=== PATIENT | female | born 1990 | race Caucasian/White ===

== ENCOUNTER 2016-11-23 19:23 | Emergency (ER) | payer SELFPAY ==
[~2016-11-23] VITALS: Ht 160 cm; Wt 95.0 kg
[~2016-11-23 19:23] MED LIST: DOXY100T PO; ZOFR4TAB3 SL
[2016-11-23 19:24] VITALS: BP 160/107; PULSE 105; RESP 16; TEMP 99.1; O2SAT 97
--- NOTE | 2016-11-23 20:14 | PD ---
Physical Exam Date Seen by Provider: Nov 23, 2016 Time Seen by Provider: 20:13 Data Data Last Documented VS Vital Signs Date Time Temp Pulse Resp B/P Pulse Ox O2 Delivery O2 Flow Rate FiO2 11/23/16 19:24 99.1 105 16 160/107 97 Room Air [facility] Supervised Visit with LUIS: No Narrative Course 26 YO F with complaint of headache, dizziness, nausea. Started in LEFT jaw ~2 days ago. Denies fever. Vitals reviewed. Awaiting bed placement. Padmini Gan Nov 23, 2016 20:14
[2016-11-23] MEDS ORDERED: CLIN1CAP5 PO (20:37)
[2016-11-23] MEDS ORDERED: IBUP-232 PO (20:37)
[2016-11-23] MEDS ORDERED: TYLETAB34 PO (20:37)
--- NOTE | 2016-11-23 20:37 | PD ---
HPI Chief Complaint: Oral / Dental Pain or Problem Time Seen by Provider: 20:25 Travel History International Travel<30 days: No Contact w/Intl Traveler<30days: No Traveled to known affect area: No History of Present Illness HPI 26-year-old female complains of left-sided jaw pain and swelling. Patient states that the symptoms started yesterday. Patient denies any fever chills. Patient states that she has intermittent dizzy for the pain. Patient denies any headache. Patient denies any neck pain. Patient denies any chest pain or shortness of breath. Patient denies abdominal pain. Patient denies any nausea vomiting diarrhea. On a scale of 1-10 the pain is a 10. 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)) Psychiatric: Yes Reproductive: Yes (POLYCYSTIC OVARY) Respiratory: Yes (ASTHMA) Radiation Therapy: No Sleep Apnea: No Ulcer: Yes PNEUMOCCOCAL Vaccine (Year): 2 ?: Not : 1 Para: 0 Miscarriage: 1 : 0 Ovarian Cysts: Yes Past Surgical History AICD: No Arteriovenous Shunt: No Body Medical Devices: PCOS Insulin Pump: No Joint Replacement: No Neurologic Surgery: No Pacemaker: No Other Surgery: No Social History Alcohol Use: No Tobacco Use: Yes Substance Use: No Allergies-Medications (Allergen,Severity, Reaction): Coded Allergies: Acarides (Mites) (Verified Allergy, Severe, 02/28/16) Cat Dander (Verified Allergy, Severe, 02/28/16) Common Ragweed (Verified Allergy, Severe, 02/28/16) Dust (Verified Allergy, Severe, 02/28/16) Levaquin (Verified Allergy, Severe, Hives, ITCHING,, 02/28/16) Reported Meds & Prescriptions Reported Meds & Active Scripts Active Zofran ODT (Ondansetron HCl) 4 Mg Tab 4 Mg SL Q6H PRN FOR NAUSEA/VOMITING Doxycycline Hyclate 100 mg (Doxycycline Hyclate) 100 Mg Tab 1 Tab PO Q12H 10 Days Review of Systems General / Constitutional: No: Fever Eyes: No: Visual changes HENT: No: Headaches Cardiovascular: No: Chest Pain or Discomfort Respiratory: No: Shortness of Breath Gastrointestinal: No: Abdominal Pain Genitourinary: No: Dysuria Musculoskeletal: No: Pain Skin: No Rash Neurologic: No: Weakness Psychiatric: No: Depression Endocrine: No: Polydipsia Hematologic/Lymphatic: No: Easy Bruising Physical Exam Narrative GENERAL: Well-nourished, well-developed patient. SKIN: Focused skin assessment warm/dry. HEAD: Normocephalic. EYES: No scleral icterus. No injection or drainage. TM: Clear. Left ear canal normal. NECK: Supple, trachea midline. No JVD. No cervical Lymphadenopathy. No meningismus CARDIOVASCULAR: Regular rate and rhythm without murmurs, gallops, or rubs. RESPIRATORY: Breath sounds equal bilaterally. No accessory muscle use. GASTROINTESTINAL: Abdomen soft, non-tender, nondistended. MUSCULOSKELETAL: No cyanosis, or edema. BACK: Nontender without obvious deformity. No CVA tenderness. Patient has mild soft tissue swelling left-sided jaw with moderate tenderness on palpation. No induration. No redness overlying the skin on the left sided jaw.. Data Data Last Documented VS Vital Signs Date Time Temp Pulse Resp B/P Pulse Ox O2 Delivery O2 Flow Rate FiO2 11/23/16 19:24 99.1 105 16 160/107 97 Room Air MDM Medical Decision Making Medical Screen Exam Complete: Yes Emergency Medical Condition: Yes Differential Diagnosis Differential diagnosis including dental pain, dental abscess, parotitis, cellulitis, adenitis. Narrative Course 26-year-old female with left-sided jaw pain and swelling. Diagnosis Primary Impression: Dental abscess Patient Instructions: General Instructions Additional Instructions: Take medications as directed. Follow-up with a dentist. Med/Other Pt SpecificInfo: Prescription(s) given Scripts Acetaminophen-Codeine (Tylenol-Codeine #3)300-30 mg Tab1-2 Tab PO Q6H PRN (PAIN ) #20 TAB Ref 0 Prov:Lon Wylie MD 11/23/16 Ibuprofen 600 Mg [id number] Mg PO Q8H PRN (PAIN) #60 TAB Ref 0 Prov:Lon Wylie MD 11/23/16 Clindamycin 150 Mg Cap2 Tab PO Q6H #80 CAP Prov:Lon Wylie MD 11/23/16 Disposition: 01 DISCHARGE HOME Condition: Stable Lon Wylie MD Nov 23, 2016 20:37
== END 2016-11-23 21:10 | disposition home or self-care (01) ==
LOC: NEPC 19:23
DX: K04.7 Periapical abscess without sinus (principal); Z72.0 Tobacco use
CPT/HCPCS: 99284

== ENCOUNTER 2017-01-04 10:31 | Emergency (ER) | payer SELFPAY ==
[~2017-01-04] VITALS: Ht 162.6 cm; Wt 100.0 kg
[~2017-01-04 10:31] MED LIST changes: +CLIN1CAP5 PO; -DOXY100T PO; +IBUP-232 PO; +TYLETAB34 PO; -ZOFR4TAB3 SL
[2017-01-04 10:33] VITALS: BP 145/94; PULSE 120; RESP 24; TEMP 98.3; O2SAT 99
[2017-01-04 10:44] VITALS: BP 149/97; PULSE 92; RESP 16; O2SAT 99
[2017-01-04] MEDS ORDERED: PENI500T PO (12:13)
--- NOTE | 2017-01-04 12:13 | PD ---
HPI Chief Complaint: Facial Pain or Swelling Time Seen by Provider: 10:46 Travel History International Travel<30 days: No Contact w/Intl Traveler<30days: No Traveled to known affect area: No History of Present Illness HPI Patient is a 26-year-old female presents emergency department for evaluation of right-sided neck swelling and difficulty swallowing. Patient states symptoms for the past day and a half. Denies any fever denies any cough or congestion. States this is never happened this severe before but states feels similar to a dental abscess she had prior. States symptoms are aggravating in severity and gradually worsening. 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)) Psychiatric: Yes Reproductive: Yes (POLYCYSTIC OVARY) Respiratory: Yes (ASTHMA) Radiation Therapy: No Sleep Apnea: No Ulcer: Yes PNEUMOCCOCAL Vaccine (Year): 2 ?: Not LMP: 12/29/16 : 1 Para: 0 Miscarriage: 1 : 0 Ovarian Cysts: Yes Past Surgical History Surgical History: No Previous Surgery AICD: No Arteriovenous Shunt: No Body Medical Devices: PCOS Insulin Pump: No Joint Replacement: No Neurologic Surgery: No Pacemaker: No Other Surgery: No Social History Alcohol Use: No Tobacco Use: Yes (1pp/3 days) Substance Use: No Allergies-Medications (Allergen,Severity, Reaction): Coded Allergies: Acarides (Mites) (Verified Allergy, Severe, 01/04/17) Cat Dander (Verified Allergy, Severe, 01/04/17) Common Ragweed (Verified Allergy, Severe, 01/04/17) Dust (Verified Allergy, Severe, 01/04/17) Levaquin (Verified Allergy, Severe, Hives, ITCHING,, 01/04/17) Reported Meds & Prescriptions Reported Meds & Active Scripts Active Magic Mouthwash Adult Liq (Multi-Ingredient Mouthwash/Gargle) 120 Ml Susp 5 Ml SWISH-SWAL ACHS Each 5mL contains: Nystatin 200,000units, Diphenhydramine 4.25mg, Viscous Lidocaine 10mg, Espinoza syrup 0.8 mL Penicillin V Potassium 500 Mg Tab 500 Mg PO Q6H 7 Days Review of Systems Except as stated in HPI: all other systems reviewed are Neg Physical Exam Narrative GENERAL: Well-nourished, well-developed patient. SKIN: Focused skin assessment warm/dry. HEAD: Normocephalic. EYES: No scleral icterus. No injection or drainage. ENT: TMs clear bilaterally, oropharynx is erythematous, no edema, tonsils are minimally enlarged. No purulent discharge. NECK: Supple, trachea midline. No JVD. Patient has no soft tissue swelling also given a swelling of the right or left neck. There perhaps is a very small tender lymph node on the right side. CARDIOVASCULAR: Regular rate and rhythm without murmurs, gallops, or rubs. RESPIRATORY: Breath sounds equal bilaterally. No accessory muscle use. GASTROINTESTINAL: Abdomen soft, non-tender, nondistended. MUSCULOSKELETAL: No cyanosis, or edema. BACK: Nontender without obvious deformity. No CVA tenderness. Data Data Last Documented VS Vital Signs Date Time Temp Pulse Resp B/P Pulse Ox O2 Delivery O2 Flow Rate FiO2 01/04/17 10:44 92 16 149/97 99 Room Air 01/04/17 10:33 98.3 Orders Group A Rapid Strep Screen (01/04/17 10:46) Lmpb-Ezuy-Zbjo Liq (Magic Mouthwash Adul (01/04/17 13:00) Strep Culture (Group A) (01/04/17 10:45) MDM Medical Decision Making Medical Screen Exam Complete: Yes Emergency Medical Condition: Yes Differential Diagnosis Dental pain, dental abscess, jaw pain, strep throat. Narrative Course Patient roomed emerged primary, appears well in obvious distress. Strep test is negative, will be placed on penicillin for possible dental abscess. I discussed with her need follow-up the primary care physician as well as a dentist. Discussed return to ED criteria. She stable for discharge this time. Diagnosis Primary Impression: Jaw pain Additional Impression: Lymphadenopathy Departure Forms: Tests/Procedures, Work Release Enter return to work date: Jan 06, 2017 Med/Other Pt SpecificInfo: Prescription(s) given Scripts Nsatwqom-Eulifumzehpuoeu-Ufelilsrx Liq (Magic Mouthwash Adult Liq)120 Ml Susp5 Ml SWISH-SWAL ACHS #120 ML Ref 0 Each 5mL contains: Nystatin 200,000units, Diphenhydramine 4.25mg, Viscous Lidocaine 10mg, Espinoza syrup 0.8 mL Prov:Magen Hassan MD 01/04/17 Penicillin V Potassium 500 Mg [id number] Mg PO Q6H 7 Days Ref 0 Prov:Magen Hassan MD 01/04/17 Disposition: 01 DISCHARGE HOME Condition: Stable Magen Hassan MD Jan 04, 2017 12:13
[2017-01-04] MEDS ORDERED: MAGICADU2 SWISH-SWAL (12:15)
[2017-01-04] MEDS ORDERED: NYSTAT/DIPHENHY/LIDO MOUTHWASH (Adult) 120ML SWISH-SWAL SCH (13:00)
== END 2017-01-04 13:08 | disposition home or self-care (01) ==
LOC: NEPE 10:31
DX: R68.84 Jaw pain (principal); R59.1 Generalized enlarged lymph nodes; J45.909 Unspecified asthma, uncomplicated; M32.9 Systemic lupus erythematosus, unspecified; F90.9 Attention-deficit hyperactivity disorder, unspecified type; F32.9 Major depressive disorder, single episode, unspecified; F17.200 Nicotine dependence, unspecified, uncomplicated; Z79.899 Other long term (current) drug therapy
CPT/HCPCS: 87081; 87880; 99284

== ENCOUNTER 2017-04-28 15:14 | Emergency (ER) | payer SELFPAY ==
[~2017-04-28] VITALS: Ht 160 cm; Wt 105.0 kg
[~2017-04-28 15:14] MED LIST changes: -CLIN1CAP5 PO; -IBUP-232 PO; +MAGICADU2 SWISH-SWAL; +PENI500T PO; -TYLETAB34 PO
[2017-04-28 15:16] VITALS: BP 133/87; PULSE 111; RESP 18; TEMP 99.4; O2SAT 97
--- NOTE | 2017-04-28 16:21 | RADRPT ---
EXAM DATE/TIME: 04/28/2017 15:55 [facility] COMPARISON: No previous studies available for comparison. INDICATIONS : Left heel pain for the past month. No prior trauma. MEDICAL HISTORY : None. SURGICAL HISTORY : None. ENCOUNTER: Initial ACUITY: 1 month PAIN SCORE: 5/10 LOCATION: Left heel. FINDINGS: 3 views of the left calcaneus demonstrate no fracture or dislocation. Mineralization is normal. There is a small chronic enthesophyte at the plantar aspect of the calcaneus. The plantar aspect soft tiss ues demonstrate no abnormality. No radiopaque foreign body is identified. CONCLUSION: No abnormality is identified to explain the clinical symptoms. Gurjit Martinez MD on April 28, 2017 at 16:18 Board Certified Radiologist. This report was verified electronically.
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
[2017-04-28] MEDS ORDERED: ACETAMINOPHEN 325 MG TAB PO ONE (18:15)
[2017-04-28] MEDS ORDERED: ONDANSETRON ODT 4 MG TAB PO ONE (18:15)
[2017-04-28 18:55] VITALS: BP 114/59
== END 2017-04-28 18:56 | disposition home or self-care (01) ==
LOC: NEPD 15:14
DX: S09.90XA Unspecified injury of head, initial encounter (principal); M79.672 Pain in left foot; R11.0 Nausea; F90.9 Attention-deficit hyperactivity disorder, unspecified type; J45.909 Unspecified asthma, uncomplicated; M32.9 Systemic lupus erythematosus, unspecified; F17.200 Nicotine dependence, unspecified, uncomplicated; Y04.2XXA Assault by strike against or bumped into by another person, initial encounter; Z79.899 Other long term (current) drug therapy
CPT/HCPCS: 70450; 73650

== ENCOUNTER 2017-06-26 11:55 | Emergency (ER) | payer SELFPAY ==
[~2017-06-26] VITALS: Ht 160 cm; Wt 95.5 kg
[2017-06-26 11:56] VITALS: BP 159/102; PULSE 107; RESP 20; TEMP 98.8; O2SAT 98
--- NOTE | 2017-06-26 12:25 | PD ---
HPI Chief Complaint: Headache Time Seen by Provider: 12:24 Travel History International Travel<30 days: No Contact w/Intl Traveler<30days: No Traveled to known affect area: No History of Present Illness HPI 27-year-old female came to the emergency room with history of headache, epigastric pain, nausea for past 2-3 days. Patient says that she has history of bulimia but stopped 2 months ago. But for past couple days every time she eats she started getting epigastric pain and headache. She seems uncomfortable. Vital signs showed slight tachycardia. Patient says that she was at work when she started getting this pain again and decided to come to the emergency room. She's never had any bowel surgeries in the past. Pain is isolated in the epigastric area. PFSH Past Medical History Narrative Medical List of her past medical, surgical, social and family history is reviewed from the nursing note. ADD: Yes ADHD: Yes Asthma: Yes Autoimmune Disease: Yes (LUPUS) Blood Disorders: No Anxiety: Yes Depression: Yes ("DYSTHYMIA") Cancer: No Cardiovascular Problems: No Chemotherapy: No COPD: No Diminished Hearing: No Endocrine: No Gastrointestinal Disorders: Yes Genitourinary: Yes Immune Disorder: Yes ("LUPUS") Implanted Vascular Access Dvce: No Musculoskeletal: No Neurologic: Yes (SHORT TERM MEMORY LOSS (SINCE CHILDHOOD-NO KNOWN CAUSE)) Psychiatric: Yes Reproductive: Yes (POLYCYSTIC OVARY) Respiratory: Yes (ASTHMA) Radiation Therapy: No Sleep Apnea: No Ulcer: Yes PNEUMOCCOCAL Vaccine (Year): 2 ?: Not LMP: 05/28/17 : 1 Para: 0 Miscarriage: 1 : 0 Ovarian Cysts: Yes Past Surgical History AICD: No Arteriovenous Shunt: No Body Medical Devices: PCOS Insulin Pump: No Joint Replacement: No Neurologic Surgery: No Pacemaker: No Other Surgery: No Social History Alcohol Use: No Tobacco Use: Yes (1pp/3 days) Substance Use: No Allergies-Medications (Allergen,Severity, Reaction): Coded Allergies: cat dander (Unverified Allergy, Severe, 06/26/17) house dust (Unverified Allergy, Severe, 06/26/17) levofloxacin (Unverified Allergy, Severe, Hives, ITCHING,, 06/26/17) pesticide (Unverified Allergy, Severe, 06/26/17) ragweed pollen (Unverified Allergy, Severe, 06/26/17) Comments List of her allergies reviewed from the nursing note. Reported Meds & Prescriptions Reported Meds & Active Scripts Active Protonix (Pantoprazole Sodium) 20 Mg Tab 20 Mg PO DAILY Zofran Odt (Ondansetron Odt) 4 Mg Tab 4 Mg SL Q6HR PRN Narrative Medication List of her home medications reviewed from the nursing note. Review of Systems Except as stated in HPI: all other systems reviewed are Neg Gastrointestinal: Positive: Nausea, Abdominal Pain Neurologic: Positive: Headache Physical Exam Narrative GENERAL: Awake, alert, obese, moderate distress, anxious SKIN: Focused skin assessment warm/dry. HEAD: Atraumatic. Normocephalic. EYES: Pupils equal and round. No scleral icterus. No injection or drainage. ENT: No nasal bleeding or discharge. Mucous membranes pink and moist. NECK: Trachea midline. No JVD. CARDIOVASCULAR: Regular rate and rhythm. No murmur appreciated. RESPIRATORY: No accessory muscle use. Clear to auscultation. Breath sounds equal bilaterally. GASTROINTESTINAL: Abdomen soft, non-tender, nondistended. Hepatic and splenic margins not palpable. MUSCULOSKELETAL: No obvious deformities. No clubbing. No cyanosis. No edema. NEUROLOGICAL: Awake and alert. No obvious cranial nerve deficits. Motor grossly within normal limits. Normal speech. PSYCHIATRIC: Appropriate mood and affect; insight and judgment normal. Data Data Last Documented VS Vital Signs Date Time Temp Pulse Resp B/P (MAP) Pulse Ox O2 Delivery O2 Flow Rate FiO2 06/26/17 14:45 06/26/17 11:56 98.8 107 20 98 Room Air Orders Orders Complete Blood Count With Diff (06/26/17 12:28) Comprehensive Metabolic Panel (06/26/17 12:28) Lipase (06/26/17 12:28) Urinalysis - C+S If Indicated (06/26/17 12:28) Iv Access Insert/Monitor (06/26/17 12:28) Ecg Monitoring (06/26/17 12:28) Oximetry (06/26/17 12:28) Sodium Chlor 0.9% 1000 Ml Inj (Ns 1000 M (06/26/17 12:28) Sodium Chloride 0.9% Flush (Ns Flush) (06/26/17 12:30) Prochlorperazine Inj (Compazine Inj) (06/26/17 12:30) Pantoprazole Inj (Protonix Inj) (06/26/17 12:45) Ed Poc Ultrasound (06/26/17 ) Ed Discharge Order (06/26/17 14:27) Labs Laboratory Tests Test 06/26/17 12:40 06/26/17 12:50 Urine Color LIGHT-YELLOW Urine Turbidity CLEAR Urine pH 6.5 Urine Specific [place] 1.004 Urine Protein NEG mg/dL Urine Glucose (UA) NEG mg/dL Urine Ketones NEG mg/dL Urine Occult Blood NEG Urine Nitrite NEG Urine Bilirubin NEG Urine Urobilinogen LESS THAN 2.0 MG/DL Urine Leukocyte Esterase NEG Urine RBC 1 /hpf Urine WBC LESS THAN 1 /hpf Urine Squamous Epithelial Cells 1 /hpf Urine Bacteria RARE /hpf Microscopic Urinalysis Comment CULT NOT INDICATED White Blood Count 9.7 TH/MM3 Red Blood Count 4.93 MIL/MM3 Hemoglobin 14.3 GM/DL Hematocrit 42.9 % Mean Corpuscular Volume 87.1 FL Mean Corpuscular Hemoglobin 29.1 PG Mean Corpuscular Hemoglobin Concent 33.4 % Red Cell Distribution Width 13.5 % Platelet Count 303 TH/MM3 Mean Platelet Volume 8.3 FL Neutrophils (%) (Auto) 67.7 % Lymphocytes (%) (Auto) 23.9 % Monocytes (%) (Auto) 5.8 % Eosinophils (%) (Auto) 1.6 % Basophils (%) (Auto) 1.0 % Neutrophils # (Auto) 6.6 TH/MM3 Lymphocytes # (Auto) 2.3 TH/MM3 Monocytes # (Auto) 0.6 TH/MM3 Eosinophils # (Auto) 0.2 TH/MM3 Basophils # (Auto) 0.1 TH/MM3 CBC Comment DIFF FINAL Differential Comment Blood Urea Nitrogen 17 MG/DL Creatinine 0.66 MG/DL Random Glucose 87 MG/DL Total Protein 8.2 GM/DL Albumin 4.0 GM/DL Calcium Level 8.9 MG/DL Alkaline Phosphatase 80 U/L Aspartate Amino Transf (AST/SGOT) 19 U/L Alanine Aminotransferase (ALT/SGPT) 22 U/L Total Bilirubin 0.3 MG/DL Sodium Level 139 MEQ/L Potassium Level 4.2 MEQ/L Chloride Level 106 MEQ/L Carbon Dioxide Level 24.7 MEQ/L Anion Gap 8 MEQ/L Estimat Glomerular Filtration Rate 106 ML/MIN Lipase 155 U/L MDM Medical Decision Making Medical Screen Exam Complete: Yes Emergency Medical Condition: Yes Medical Record Reviewed: Yes Differential Diagnosis Acute gastritis, acute pancreatitis, biliary colic, acute cholecystitis Narrative Course 2:24 PM bedside ultrasound done by me did not show any gallbladder stone. Please refer to my procedure note. Blood test results finally came back and they're within normal limit. He discharged home. She was given IV Protonix and nausea medicine. She was also given Compazine for her headache. Procedures EKG Prior to Arrival: No Diagnosis Primary Impression: Headache Qualified Codes: R51 - Headache Additional Impression: Acute gastritis Qualified Codes: K29.00 - Acute gastritis without bleeding Referrals: Primary Care Physician Additional Instructions: Please return to the ER if condition worsens or any other new concerns. Take the medication as per the prescription direction. Follow-up with your primary care. Med/Other Pt SpecificInfo: Prescription(s) given Scripts Pantoprazole (Protonix) 20 Mg Tab 20 MG PO DAILY for Reflux, #30 TAB 0 Refills Prov: Geoffrey Liz MD 06/26/17 Ondansetron Odt (Zofran Odt) 4 Mg Tab 4 MG SL Q6HR Y for Nausea/Vomiting, #10 TAB 0 Refills Prov: Geoffrey Liz MD 06/26/17 Disposition: 01 DISCHARGE HOME Condition: Stable Geoffrey Liz MD Jun 26, 2017 12:25
[2017-06-26] MEDS ORDERED: SODIUM CHLOR 0.9% 1000 ML INJ 1,000 ML IV SCH (12:28)
[2017-06-26] MEDS ORDERED: PROCHLORPERAZINE INJ 10 MG/2 ML VIAL IV PUSH ONE (12:30)
[2017-06-26] MEDS ORDERED: SODIUM CHLORIDE 0.9% FLUSH 10 ML FLUSH IV FLUSH PRN (12:30)
[2017-06-26] MEDS ORDERED: PANTOPRAZOLE SODIUM 40 MG VIAL IV PUSH ONE (12:45)
[2017-06-26 13:17] LABS: AUTOMATED NEUTROPHIL # 6.6 TH/MM3 (1.8-7.7); BASOPHIL # 0.1 TH/MM3 (0-0.2); EOSINOPHIL # 0.2 TH/MM3 (0-0.4); EOSINOPHIL % 1.6 % (0.0-4.0); HEMATOCRIT 42.9 % (35.0-46.0); HEMOGLOBIN 14.3 GM/DL (11.6-15.3); LYMPH % 23.9 % (9.0-44.0); LYMPHOCYTE # 2.3 TH/MM3 (1.0-4.8); MEAN CELL VOLUME 87.1 FL (80.0-100.0); MEAN CORPUSCULAR HEMOGLOBIN 29.1 PG (27.0-34.0); MEAN CORPUSCULAR HGB CONC 33.4 % (32.0-36.0); MEAN PLATELET VOLUME 8.3 FL (7.0-11.0); MONO % 5.8 % (0.0-8.0); MONOCYTE # 0.6 TH/MM3 (0-0.9); NEUT % 67.7 % (16.0-70.0); PLATELET COUNT 303 TH/MM3 (150-450); RED BLOOD COUNT 4.93 MIL/MM3 (4.00-5.30); RED CELL DISTRIBUTION WIDTH 13.5 % (11.6-17.2); WHITE BLOOD COUNT 9.7 TH/MM3 (4.0-11.0)
[2017-06-26 13:29] LABS: BACTERIA, URINE RARE /hpf; BILIRUBIN, URINE NEG (NEG); BLOOD, URINE NEG (NEG); GLUCOSE,URINE NEG (NEG); KETONE, URINE NEG (NEG); NITRITE,URINE NEG (NEG); PH, URINE 6.5 (5.0-8.5); SQUAMOUS EPITHELIAL CELL URINE 1 /hpf (0-5); URINE COLOR LIGHT-YELLOW (YELLW/STRAW); URINE LEUKOCYTE ESTERASE NEG (NEG)
[2017-06-26 14:13] LABS: ALT (GPT) 22 U/L (10-53); AST (GOT) 19 U/L (15-37); BICARBONATE 24.7 MEQ/L (21.0-32.0); BLOOD UREA NITROGEN 17 MG/DL (7-18); CALCIUM 8.9 MG/DL (8.5-10.1); CHLORIDE 106 MEQ/L (98-107); CREATININE 0.66 MG/DL (0.50-1.00); GLOMERULAR FILTRATION RATE 106 ML/MIN (>89); GLUCOSE,RANDOM 87 MG/DL (74-106); LIPASE 155 U/L (73-393); SODIUM (NA) 139 MEQ/L (136-145)
[2017-06-26 14:15] LABS: ALKALINE PHOSPHATASE 80 U/L (45-117); TOTAL BILIRUBIN ADULT 0.3 MG/DL (0.2-1.0); TOTAL PROTEIN 8.2 GM/DL (6.4-8.2)
[2017-06-26] MEDS ORDERED: ZOFR4TAB3 SL (14:27)
[2017-06-26] MEDS ORDERED: PANT20 PO (14:27)
== END 2017-06-26 14:46 | disposition home or self-care (01) ==
LOC: NEPD 11:55
DX: R51 Headache (principal); K29.00 Acute gastritis without bleeding; F17.200 Nicotine dependence, unspecified, uncomplicated
CPT/HCPCS: 80053; 81001; 83690; 85025; 96374; 96375; 99284; C9113; J0780; J7030

== ENCOUNTER 2017-07-23 00:16 | Emergency (ER) | payer SELFPAY ==
[~2017-07-23] VITALS: Ht 162.6 cm; Wt 115.0 kg
[~2017-07-23 00:16] MED LIST changes: -MAGICADU2 SWISH-SWAL; +PANT20 PO; -PENI500T PO; +ZOFR4TAB3 SL
[2017-07-23 00:18] VITALS: BP 122/84; PULSE 115; RESP 20; TEMP 101.5; O2SAT 97
[2017-07-23] MEDS ORDERED: IBUPROFEN 800 MG TAB PO ONE (01:30)
[2017-07-23] MEDS ORDERED: ACETAMINOPHEN 500 MG CPLT PO ONE (01:30)
--- NOTE | 2017-07-23 01:36 | PD ---
HPI Chief Complaint: Cold / Flu Symptoms Time Seen by Provider: 01:35 Travel History International Travel<30 days: No Contact w/Intl Traveler<30days: No Traveled to known affect area: No History of Present Illness HPI 27 year-old female presents to the emergency department by private transportation for complaint of fever chills cough congestion sore throat headache myalgias arthralgias nausea vomiting abdominal pain no dysuria frequency urgency or diarrhea. Symptoms are present since yesterday. Unknown last visit. If she has polycystic ovary syndrome. Patient denies other concerns or complaints. Patient has taken one-time dose of DayQuil at 2 PM without symptom relief. 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)) Psychiatric: Yes Reproductive: Yes (POLYCYSTIC OVARY) Respiratory: Yes (ASTHMA) Radiation Therapy: No Sleep Apnea: No Ulcer: Yes Tetanus Vaccination: Unknown Influenza Vaccination: No PNEUMOCCOCAL Vaccine (Year): 2 ?: Not LMP: irregular periods : 1 Para: 0 Miscarriage: 1 : 0 Ovarian Cysts: Yes Past Surgical History Surgical History: Unable to Obtain AICD: No Arteriovenous Shunt: No Body Medical Devices: PCOS Insulin Pump: No Joint Replacement: No Neurologic Surgery: No Pacemaker: No Other Surgery: No Social History Alcohol Use: No Tobacco Use: Yes (1pp/3 days) Substance Use: No Allergies-Medications (Allergen,Severity, Reaction): Coded Allergies: cat dander (Unverified Allergy, Severe, 07/23/17) house dust (Unverified Allergy, Severe, 07/23/17) levofloxacin (Unverified Allergy, Severe, Hives, ITCHING,, 07/23/17) pesticide (Unverified Allergy, Severe, 07/23/17) ragweed pollen (Unverified Allergy, Severe, 07/23/17) Reported Meds & Prescriptions Reported Meds & Active Scripts Active Protonix (Pantoprazole Sodium) 20 Mg Tab 20 Mg PO DAILY Zofran Odt (Ondansetron Odt) 4 Mg Tab 4 Mg SL Q6HR PRN Review of Systems Except as stated in HPI: all other systems reviewed are Neg Physical Exam Narrative GENERAL: Well-developed well-nourished morbidly obese female in no acute distress no respiratory distress; Triaged temperature 101.5 F SKIN: Warm and dry. HEAD: Normocephalic. EYES: No scleral icterus. No injection or drainage. NECK: Supple, trachea midline. No JVD or lymphadenopathy. CARDIOVASCULAR: Regular rate and rhythm without murmurs, gallops, or rubs. RESPIRATORY: Breath sounds equal bilaterally. No accessory muscle use. GASTROINTESTINAL: Abdomen soft, non-tender, nondistended. MUSCULOSKELETAL: No cyanosis, or edema. BACK: Nontender without obvious deformity. No CVA tenderness. Data Data Last Documented VS Vital Signs Date Time Temp Pulse Resp B/P (MAP) Pulse Ox O2 Delivery O2 Flow Rate FiO2 07/23/17 00:18 101.5 115 20 122/84 (97) 97 Orders Orders Influenzae A/B Antigen (07/23/17 01:08) Ibuprofen (Motrin) (07/23/17 01:30) Acetaminophen (Tylenol) (07/23/17 01:30) Ed Urine Pregnancytest Poc (07/23/17 01:30) Oseltamivir (Tamiflu) (07/23/17 01:45) MDM Medical Decision Making Medical Screen Exam Complete: Yes Emergency Medical Condition: Yes Medical Record Reviewed: Yes Interpretation(s) Influenza A/B antigen: Positive A Differential Diagnosis Influenza, viral syndrome, sinusitis, pharyngitis, pneumonia Narrative Course 27-year-old female with multiple respiratory symptoms consistent with probable influenza virus presents with 24 hours of symptoms last dose of medication NyQuil at 2 PM providing of symptomatic relief. Patient will have flu swab specimen collected and be given weight-based ibuprofen and acetaminophen To test was positive for patient stable for outpatient management first dose of Tamiflu administered in the emergency department Diagnosis Primary Impression: Influenza Referrals: Primary Care Physician call for appointment Patient Instructions: General Instructions Med/Other Pt SpecificInfo: Prescription(s) given Scripts Oseltamivir (Tamiflu) 75 Mg Cap 75 MG PO BID for Mgmt Viral Infection for 5 Days, #10 CAP 0 Refills Prov: Salter,Adri H. MD 07/23/17 Disposition: 01 DISCHARGE HOME Condition: Stable Adri Jasso MD Jul 23, 2017 01:36
[2017-07-23] MEDS ORDERED: OSELTAMIVIR PHOSPHATE 75 MG CAP PO ONE (01:45)
[2017-07-23] MEDS ORDERED: OSEL75 PO (01:45)
== END 2017-07-23 02:06 | disposition home or self-care (01) ==
LOC: NEPC 00:16
DX: J11.1 Influenza due to unidentified influenza virus with other respiratory manifestations (principal); R11.2 Nausea with vomiting, unspecified; R51 Headache; F17.200 Nicotine dependence, unspecified, uncomplicated; M32.9 Systemic lupus erythematosus, unspecified; F90.9 Attention-deficit hyperactivity disorder, unspecified type; J45.909 Unspecified asthma, uncomplicated; F41.9 Anxiety disorder, unspecified; F32.9 Major depressive disorder, single episode, unspecified
CPT/HCPCS: 84703; 87804; 99283

== ENCOUNTER 2017-07-23 19:32 | Emergency (ER) | payer SELFPAY ==
[~2017-07-23] VITALS: Ht 162.6 cm; Wt 114.0 kg
[~2017-07-23 19:32] MED LIST changes: +OSEL75 PO
[2017-07-23 19:33] VITALS: BP 135/92; PULSE 110; RESP 16; TEMP 98.6; O2SAT 96
--- NOTE | 2017-07-23 21:58 | PD ---
HPI Chief Complaint: Respiratory Symptoms Time Seen by Provider: 21:47 Travel History International Travel<30 days: No Contact w/Intl Traveler<30days: No Traveled to known affect area: No History of Present Illness HPI 27-year-old female presents to the emergency department complaining of cough, congestion, body aches that worsened over the evening. States that she was here yesterday and was diagnosed with the flu. States she has been taking her Tamiflu over the last day. In addition, she has felt "dizzy" and more short of breath. Patient denies nausea or vomiting but admits to decreased appetite. Denies abdominal pain. Says her symptoms have been present for approximately 2 days. PFSH Past Medical History ADD: Yes ADHD: Yes Asthma: Yes Autoimmune Disease: Yes (LUPUS) Blood Disorders: No Anxiety: Yes Depression: Yes ("DYSTHYMIA") Cancer: No Cardiovascular Problems: No Chemotherapy: No COPD: No Diminished Hearing: No Endocrine: No Gastrointestinal Disorders: Yes Genitourinary: Yes Immune Disorder: Yes ("LUPUS") Implanted Vascular Access Dvce: No Musculoskeletal: No Neurologic: Yes (SHORT TERM MEMORY LOSS (SINCE CHILDHOOD-NO KNOWN CAUSE)) Psychiatric: Yes Reproductive: Yes (POLYCYSTIC OVARY) Respiratory: Yes (ASTHMA) Radiation Therapy: No Sleep Apnea: No Ulcer: Yes PNEUMOCCOCAL Vaccine (Year): 2 ?: Unknown : 1 Para: 0 Miscarriage: 1 : 0 Ovarian Cysts: Yes Past Surgical History Surgical History: No Previous Surgery AICD: No Arteriovenous Shunt: No Body Medical Devices: PCOS Insulin Pump: No Joint Replacement: No Neurologic Surgery: No Pacemaker: No Other Surgery: No Social History Alcohol Use: No Tobacco Use: Yes (1pp/3 days) Substance Use: No Allergies-Medications (Allergen,Severity, Reaction): Coded Allergies: cat dander (Unverified Allergy, Severe, 07/23/17) house dust (Unverified Allergy, Severe, 07/23/17) levofloxacin (Unverified Allergy, Severe, Hives, ITCHING,, 07/23/17) pesticide (Unverified Allergy, Severe, 07/23/17) ragweed pollen (Unverified Allergy, Severe, 07/23/17) Reported Meds & Prescriptions Reported Meds & Active Scripts Active Tamiflu (Oseltamivir Phosphate) 75 Mg Cap 75 Mg PO BID 5 Days Protonix (Pantoprazole Sodium) 20 Mg Tab 20 Mg PO DAILY Zofran Odt (Ondansetron Odt) 4 Mg Tab 4 Mg SL Q6HR PRN Review of Systems Except as stated in HPI: all other systems reviewed are Neg Physical Exam Narrative GENERAL: Well-nourished, well-developed patient. SKIN: Focused skin assessment warm/dry. Skin is warm HEAD: Normocephalic. EYES: No scleral icterus. No injection or drainage. NECK: Supple, trachea midline. No JVD or lymphadenopathy. CARDIOVASCULAR: Regular rate and rhythm without murmurs, gallops, or rubs. RESPIRATORY: Breath sounds equal bilaterally. No accessory muscle use. GASTROINTESTINAL: Abdomen soft, non-tender, nondistended. MUSCULOSKELETAL: No cyanosis, or edema. BACK: Nontender without obvious deformity. No CVA tenderness. Data Data Last Documented VS Vital Signs Date Time Temp Pulse Resp B/P (MAP) Pulse Ox O2 Delivery O2 Flow Rate FiO2 07/23/17 23:16 07/23/17 21:50 18 Room Air 07/23/17 19:33 98.6 110 96 Orders Orders Chest, Single Ap (07/23/17 ) Ketorolac Inj (Toradol Inj) (07/23/17 22:00) Sodium Chlor 0.9% 1000 Ml Inj (Ns 1000 M (07/23/17 22:00) Oseltamivir (Tamiflu) (07/23/17 22:00) Ed Discharge Order (07/23/17 23:06) MDM Medical Decision Making Medical Screen Exam Complete: Yes Emergency Medical Condition: Yes Differential Diagnosis Influenza A, viral syndrome, upper respiratory infection Narrative Course 27-year-old female presents to the emergency department complaining of cough, congestion, body aches that worsened over the evening. States that she was here yesterday and was diagnosed with the flu. States she has been taking her Tamiflu over the last day. In addition, she has felt "dizzy" and more short of breath. Patient denies nausea or vomiting but admits to decreased appetite. Denies abdominal pain. Says her symptoms have been present for approximately 2 days. Vital signs- tachycardia Influenza positive yesterday. 1 L NS IV fluids, Toradol 60 mg administered in the emergency department. Chest x-ray without acute process. Encourage fluid intake and nutritious diet. Tylenol or Motrin per package instructions. Advised to follow-up with her primary care physician. Reassured patient that this is the normal process of the influenza. Advised to continue Tamiflu as prescribed previously. Advised the Tamiflu is meant to decrease the duration of the flu not necessarily the symptoms. Diagnosis Primary Impression: Influenza A Referrals: Primary Care Physician Additional Instructions: Continue Tamiflu as discussed. You received a dose of Tamiflu while in the emergency department today. Take tylenol or motrin for your body aches. Encourage adequate fluid intake. Disposition: 01 DISCHARGE HOME Condition: Stable Altagracia Martinez Jul 23, 2017 21:58
[2017-07-23] MEDS ORDERED: OSELTAMIVIR PHOSPHATE 75 MG CAP PO ONE (22:00)
[2017-07-23] MEDS ORDERED: KETOROLAC TROMETHAMINE 60 MG/2 ML (IM) VIAL IM ONE (22:00)
[2017-07-23] MEDS ORDERED: SODIUM CHLOR 0.9% 1000 ML INJ 1,000 ML IV ONE (22:00)
--- NOTE | 2017-07-23 22:40 | RADRPT ---
EXAM DATE/TIME: 07/23/2017 21:59 [facility] COMPARISON: CHEST SINGLE AP, July 11, 2015, 22:46. INDICATIONS : Shortness of breath, chest pain, cough, and congestion. MEDICAL HISTORY : Ulcers. SURGICAL HISTORY : None. ENCOUNTER: Initial ACUITY: 3 days PAIN SCORE: 7/10 LOCATION: Bilateral chest FINDINGS: A single view of the chest demonstrates the lungs to be symmetrically aerated without evidence of mas s, infiltrate or effusion. The cardiomediastinal contours are unremarkable. Osseous structures are intact. CONCLUSION: No acute disease. Magen Manzo MD on July 23, 2017 at 22:37 Board Certified Radiologist. This report was verified electronically.
== END 2017-07-23 23:21 | disposition home or self-care (01) ==
LOC: NEPC 19:32
DX: J09.X2 Influenza due to identified novel influenza A virus with other respiratory manifestations (principal); R00.0 Tachycardia, unspecified; R42 Dizziness and giddiness; M32.9 Systemic lupus erythematosus, unspecified; F90.9 Attention-deficit hyperactivity disorder, unspecified type; J45.909 Unspecified asthma, uncomplicated; F41.9 Anxiety disorder, unspecified; F34.1 Dysthymic disorder; F17.200 Nicotine dependence, unspecified, uncomplicated
CPT/HCPCS: 71045; 96360; 96372; 99283; J1885; J7030

== ENCOUNTER 2017-10-08 08:52 | Emergency (ER) | payer SELFPAY ==
[2017-10-08 09:02] VITALS: BP 189/92; PULSE 103; RESP 20; TEMP 98.6; O2SAT 96
--- NOTE | 2017-10-08 09:54 | RADRPT ---
EXAM DATE/TIME: 10/08/2017 09:34 [facility] COMPARISON: No previous studies available for comparison. INDICATIONS : Rolling injury. Right lateral foot pain. MEDICAL HISTORY : Ulcers. SURGICAL HISTORY : None. ENCOUNTER: Initial ACUITY: 1 day PAIN SCORE: 7/10 LOCATION: Right foot, ankle FINDINGS: Three view exam was performed of the right ankle. Small crescentic calcification inferior to lateral malleolus. The bony structures are in normal alignment. No evidence of dislocation, or soft tissue swelling. The ankle mortise is intact. No radiopaque foreign bodies are seen. Bony mineralization is normal. CONCLUSION: 1. Subtle crescentic calcification inferior to lateral malleolus which may reflect a small avulsion f racture. Yuniel Lees MD on October 08, 2017 at 9:49 Board Certified Radiologist. This report was verified electronically.
--- NOTE | 2017-10-08 09:56 | RADRPT ---
EXAM DATE/TIME: 10/08/2017 09:36 [facility] COMPARISON: FOOT RIGHT COMPLETE ([id number]), November 17, 2014, 15:52. INDICATIONS : Rolling injury. Right lateral foot pain. MEDICAL HISTORY : None. SURGICAL HISTORY : None. ENCOUNTER: Initial ACUITY: 1 day PAIN SCORE: 8/10 LOCATION: Right lateral foot,ankle FINDINGS: Three view examination of the right foot demonstrates no soft tissue swelling, dislocation, or fractu re. The tarsal bones appear intact. The interphalangeal and metatarsophalangeal joints are intact. The calcaneus is intact. Bony mineralization is normal. CONCLUSION: 1. No acute fracture or dislocation. Yuniel Lees MD on October 08, 2017 at 9:52 Board Certified Radiologist. This report was verified electronically.
--- NOTE | 2017-10-08 10:16 | PD ---
HPI Chief Complaint: Injury Time Seen by Provider: 09:12 Travel History International Travel<30 days: No Contact w/Intl Traveler<30days: No Traveled to known affect area: No History of Present Illness HPI 27-year-old female presents the emergency department with injury to the left foot/ankle. She states she was walking last night and twisted her foot inward, causing her injury. She has pain and swelling over the lateral malleolus. She complains of pain and numbness along the lateral right foot. She denies any other injury. Pain is about an 8 out of 10. Worse with movement or ambulation. PFSH Past Medical History ADD: Yes ADHD: Yes Asthma: Yes Autoimmune Disease: Yes (LUPUS) Blood Disorders: No Anxiety: Yes Depression: Yes ("DYSTHYMIA") Cancer: No Cardiovascular Problems: No Chemotherapy: No COPD: No Diminished Hearing: No Endocrine: No Gastrointestinal Disorders: Yes Genitourinary: Yes Immune Disorder: Yes ("LUPUS") Implanted Vascular Access Dvce: No Musculoskeletal: No Neurologic: Yes (SHORT TERM MEMORY LOSS (SINCE CHILDHOOD-NO KNOWN CAUSE)) Psychiatric: Yes Reproductive: Yes (POLYCYSTIC OVARY) Respiratory: Yes (ASTHMA) Radiation Therapy: No Sleep Apnea: No Ulcer: Yes Tetanus Vaccination: < 5 Years PNEUMOCCOCAL Vaccine (Year): 2 ?: Not : 1 Para: 0 Miscarriage: 1 : 0 Ovarian Cysts: Yes Past Surgical History AICD: No Arteriovenous Shunt: No Body Medical Devices: PCOS Insulin Pump: No Joint Replacement: No Neurologic Surgery: No Pacemaker: No Other Surgery: No Social History Alcohol Use: No Tobacco Use: Yes (vaping) Substance Use: No Allergies-Medications (Allergen,Severity, Reaction): Coded Allergies: cat dander (Unverified Allergy, Severe, 10/08/17) house dust (Unverified Allergy, Severe, 10/08/17) levofloxacin (Unverified Allergy, Severe, Hives, ITCHING,, 10/08/17) pesticide (Unverified Allergy, Severe, 10/08/17) ragweed pollen (Unverified Allergy, Severe, 10/08/17) Reported Meds & Prescriptions Reported Meds & Active Scripts Active No Active Prescriptions or Reported Medications Review of Systems Except as stated in HPI: all other systems reviewed are Neg General / Constitutional: No: Fever Eyes: No: Visual changes HENT: No: Headaches Cardiovascular: No: Chest Pain or Discomfort Respiratory: No: Shortness of Breath Gastrointestinal: No: Abdominal Pain Genitourinary: No: Dysuria Musculoskeletal: Positive: Arthralgias, Limited ROM, Pain Skin: No Rash Neurologic: No: Weakness Psychiatric: No: Depression Endocrine: No: Polydipsia Hematologic/Lymphatic: No: Easy Bruising Physical Exam Narrative GENERAL: Patient is in mild distress. SKIN: Warm and dry. Normal color. Normal turgor HEAD: Atraumatic. Normocephalic. EYES: Pupils equal and round. No scleral icterus. No injection or drainage. ENT: No nasal bleeding or discharge. Mucous membranes pink and moist. Pharynx is clear. Airways patent. NECK: Trachea midline. No JVD. CARDIOVASCULAR: Regular rate and rhythm. RESPIRATORY: No accessory muscle use. Clear to auscultation. Breath sounds equal bilaterally. MUSCULOSKELETAL: Extremities without clubbing, cyanosis, or edema. No obvious deformities. Patient has swelling over the right lateral malleolus with tenderness with palpation and motion. Range of motion is limited secondary to pain. No loss of function is noted. Neurovascular exam is normal. NEUROLOGICAL: Awake and alert. No obvious cranial nerve deficits. Motor grossly within normal limits. Five out of 5 muscle strength in the arms and legs. Normal speech. PSYCHIATRIC: Appropriate mood and affect; insight and judgment normal. Data Data Last Documented VS Vital Signs Date Time Temp Pulse Resp B/P (MAP) Pulse Ox O2 Delivery O2 Flow Rate FiO2 10/08/17 09:02 98.6 103 20 189/92 (124) 96 Orders Orders Ankle, Complete ([id number]) (10/08/17 09:19) Foot, Complete ([id number]) (10/08/17 09:19) Ice/Cold Pack (10/08/17 09:19) Splinting (10/08/17 ) Crutches (10/08/17 10:05) MDM Medical Decision Making Medical Screen Exam Complete: Yes Emergency Medical Condition: Yes Differential Diagnosis Right ankle sprain. Left foot sprain. Right ankle fracture. Narrative Course Ice is applied to the injured area. X-ray of the right foot and ankle are ordered. X-ray show small avulsion fracture the distal right lateral malleolus, otherwise no significant findings Patient is placed in a [place] splint and crutches Patient will follow up with Dr. Barrett, the electronic prepress system operator on-call. Patient can take Tylenol, ice it, and use crutches and splint until seen in follow-up. Diagnosis Primary Impression: Closed fracture of distal lateral malleolus of right ankle Qualified Codes: S82.61XA - Displaced fracture of lateral malleolus of right fibula, initial encounter for closed fracture Referrals: Cordell Barrett DPDannielle call for appointment Patient Instructions: Crutch Instructions (ED), General Instructions, Splint Care (ED) Additional Instructions: X-ray show small avulsion fracture the distal right lateral malleolus, otherwise no significant findings Patient is placed in a [place] splint and crutches Patient will follow up with Dr. Barrett, the electronic prepress system operator on-call. Patient can take Tylenol, ice it, and use crutches and splint until seen in follow-up. Med/Other Pt SpecificInfo: No Meds Exist/No RX given Scripts No Active Prescriptions or Reported Meds Disposition: 01 DISCHARGE HOME Condition: Stable Wilton Juan Oct 08, 2017 10:16
== END 2017-10-08 10:55 | disposition home or self-care (01) ==
LOC: NEPK 08:52
DX: S82.61XA Displaced fracture of lateral malleolus of right fibula, initial encounter for closed fracture (principal); R20.0 Anesthesia of skin; F90.9 Attention-deficit hyperactivity disorder, unspecified type; J45.909 Unspecified asthma, uncomplicated; M32.9 Systemic lupus erythematosus, unspecified; X50.1XXA Overexertion from prolonged static or awkward postures, initial encounter
CPT/HCPCS: 29515; 73610; 73630; 99283; E0113